=== PATIENT | male | born 1990 | race Caucasian/White ===

== ENCOUNTER 2018-02-15 21:04 | Emergency (ER) | payer OTHER ==
--- NOTE | 2018-02-15 21:42 | EDPHY ---
H & P Stated Complaint: R CALF INFX X 4 DAYS/ON BACTRIM - Personal History Current Tetanus Diphtheria and Acellular Pertussis (TDAP): Yes - Medical/Surgical History Hx Asthma: Yes Hx Chronic Respiratory Disease: No Hx Diabetes: No Hx Cardiac Disease: No Hx Renal Disease: No Hx Cirrhosis: No Hx Alcoholism: No Hx HIV/AIDS: No Hx Splenectomy or Spleen Trauma: No Other PMH: ASTHMA - Social History Smoking Status: Never smoked Time Seen by Provider: 02/15/18 21:41 Constitutional: Initial Vital Signs Temperature (C) 98.1 F 02/15/18 21:16 Heart Rate 96 02/15/18 21:16 Respiratory Rate 16 02/15/18 21:16 Blood Pressure 152/81 H 02/15/18 21:16 O2 Sat (%) 96 02/15/18 21:16 O2 Delivery Mode Room Air Allergies/Adverse Reactions: No Known Allergies Allergy (Unverified 02/15/18 21:18) Home Medications: Medication Instructions Recorded Albuterol 02/15/18 Cephalexin [Keflex (RX)] 500 mg PO TID #30 cap 02/15/18 Sulfamethox/Tmp 800/160 mg 1 tab PO BID #14 tab 02/15/18 [Bactrim Ds] ZYRTEC 02/15/18 Medical Decision Making Procedures: My involvement the care this patient is solely for procedure. Please see the note of the attending physician for all other aspects of care. PROCEDURE: Incision and Drainage Consent: Verbal Location: Right calf Length: 3 cm Complexity: Complex Anesthesia: Local per 1% lidocaine with epinephrine, 5 mL Procedure description: After time-out and good anesthesia, the area was prepped , sterile fashion with chlorhexidine. Using sterile technique, I used a # Blade to make a 2 cm incision. Blunt dissection was carried out, breaking up all loculations. 5 mL of purulence expressed. 5mL serosanguineous fluid expressed. Quarter-inch iodoform packing placed still dressing placed Expressed: 5 mL purulent. 5 mL serosanguineous. Wound care: Change the dressing daily. Follow-up: 48 hr for removal of packing re-evaluation (Adolfo Gonzalez) ED Course/Re-evaluation: CHIEF COMPLAINT: Right calf infection and pain HISTORY OF PRESENT ILLNESS: The patient is a 27 y/o male with a history of asthma complaining of a worsening right calf infection and pain. Around 2 weeks ago he developed a large pimple, so he picked at it. The pain and redness worsened over the next several days. 4 days ago he was diagnosed with cellulitis of his right calf and started taking Bactrim. However, the pain and redness has worsened. No fever, chest pain, shortness of breath, abdominal pain, numbness, paresthesias. REVIEW OF SYSTEMS: A comprehensive 10 system review of systems is otherwise negative aside from elements mentioned in the history of present illness and medical decision making. PHYSICAL EXAM: HR, BP, O2 Sat, RR. Temp noted General Appearance: Alert, well hydrated, appropriate, and non-toxic appearing. Head: Atraumatic without scalp tenderness or obvious injury Eyes: Pupils equal, round, reactive to light and accommodation, EOMI, no trauma , no injection. Ears: Clear bilaterally, no perforation, normal landmarks Nose: Atraumatic, no rhinorrhea, clear. Throat: There is no erythema or exudates, no lesions, normal tonsils, mucus membranes moist. Neck: Supple, 2+ carotid upstroke, nontender, no lymphadenopathy. Respiratory: No retractions, no distress, no wheezes, and no accessory muscle use. Lungs are clear to auscultation bilaterally. Cardiovascular: Regular rate and rhythm, no murmurs, rubs, or gallops. Bilateral carotid, radial, dorsalis pedis, and posterior tibial pulses intact. Good capillary refill all extremities. Gastrointestinal: Abdomen is soft, nontender, non-distended, no masses, no rebound, no guarding, no peritoneal signs. Musculoskeletal: Normal active ROM of all extremities, atraumatic. Neurological: Alert, appropriate, and interactive. The patient has normal DTRs and non-focal cranial nerves, motor, sensory, and cerebellar exam. Skin: Right calf indurated area that is expressing purulent with surrounding cellulitis. There is no sign of lymphangitis. No rashes, good turgor, no nodules on palpation. Past medical history: Asthma Past surgical history: Denies Family history: Denies Social history: Lives in [place], single, employed DIAGNOSTICS/PROCEDURES/CRITICAL CARE TIME: BIBIANA Moran will preform an I&D. DIFFERENTIAL DIAGNOSIS: The differential diagnosis for the patient's fever included but was not limited to cellulitis, lymphangitis, viral syndrome, and sepsis. MEDICAL DECISION MAKING: The patient is a 27 y/o male with a history of asthma presenting with a worsening right calf infection and pain even after starting antibiotics. On exam he has an indurated area that is expressing purulent with surrounding cellulitis. There is no sign of lymphangitis and he is not systemically ill. [facility] will preform an I&D. 2215: Reassessed patient after I&D. I have discussed taking Keflex in addition to Bactrim; his first dose of Keflex has been given prior to discharge. He will need to follow up with is PCP or this emergency department in 48 hours for packing removal. Return precautions provided; patient is comfortable with this plan. (Davion aGona) - Data Points Medications Given: Discontinued Medications Cephalexin HCl (Keflex) 500 mg PO EDNOW ONE PRN Reason: Protocol Stop: 02/15/18 21:55 Last Admin: 02/15/18 22:20 Dose: 500 mg Departure - Departure Disposition: Home, Routine, Self-Care Clinical Impression: Cellulitis Condition: Good Instructions: Cellulitis (ED) Additional Instructions: 1. Take Keflex and Bactrim as prescribed. 2. Follow-up with your primary doctor or this emergency department in 48 hours to recheck the wound packing. 3. Return to the Emergency Department for fever, redness, discharge from wound, increasing pain or other worsening of condition. Referrals: Tate Davalos DO [Primary Care Provider] - As per Instructions Stand Alone Forms: Work Excuse Prescriptions: Cephalexin [Keflex (RX)] 500 mg PO TID #30 cap Sulfamethox/Tmp 800/160 mg [Bactrim Ds] 1 tab PO BID #14 tab Report Scribed for: Davion Gaona Report Scribed by: Gissel Loomis Date of Report: 02/15/18 Time of Report: 22:18
[2018-02-15] MEDS ORDERED: CEPHALEXIN 500 MG CAP PO ONE (21:54)
[2018-02-15 22:26] VITALS: BP 149/85
== END 2018-02-15 22:26 | disposition home or self-care (01) ==
PROC: 0H9KXZZ Drainage of Right Lower Leg Skin, External Approach (ICD-10-PCS; principal; 2018-02-15)
DX: L03.115 Cellulitis of right lower limb (principal); J45.909 Unspecified asthma, uncomplicated